=== PATIENT | male | born 1975 | race Caucasian/White ===

== ENCOUNTER 2022-09-13 12:49 | Inpatient (IN) | payer OTHER ==
--- NOTE | 2022-09-13 13:32 | ED ---
Psych HPI - General Chief Complaint: Psychiatric Symptoms Stated Complaint: mental health Time Seen by Provider: 09/13/22 12:58 Source: patient, RN notes reviewed Mode of arrival: ambulatory Limitations: no limitations - History of Present Illness Initial Comments: 47-year-old male presents emergency department for anxiety, depression, intermittent thoughts of harming himself. Patient states she's been so anxious states is at his breaking point that he is afraid he may harm himself. Patient states they he says some issues but was placed on ADH medication which she still taking. He states that he just feels unsafe he does use marijuana denies any other illicit drug use or alcohol abuse. Patient states he needs further psychiatric help. - Related Data Home Medications Medication Instructions Recorded Confirmed Dextroamphetamine/Amphetamine 30 mg PO TID 09/13/22 09/13/22 [Adderall 30 mg Tablet] Metoprolol Tartrate [Lopressor] 25 mg PO BID 09/13/22 09/13/22 lisinopriL 40 mg PO BID 09/13/22 09/13/22 Allergies Allergy/AdvReac Type Severity Reaction Status Date / Time No Known Allergies Allergy Verified 09/13/22 14:18 Review of Systems ROS Statement: Those systems with pertinent positive or pertinent negative responses have been documented in the HPI. ROS Other: All systems not noted in ROS Statement are negative. Past Medical History Past Medical History: Hypertension History of Any Multi-Drug Resistant Organisms: None Reported Past Surgical History: Appendectomy Past Psychological History: ADD/ADHD, Anxiety, Depression Smoking Status: Current every day smoker Past Alcohol Use History: None Reported Past Drug Use History: None Reported General Exam Limitations: no limitations General appearance: alert, in no apparent distress Head exam: Present: atraumatic, normocephalic, normal inspection Eye exam: Present: normal appearance, PERRL, EOMI. Absent: scleral icterus, conjunctival injection, periorbital swelling ENT exam: Present: normal exam, normal oropharynx, mucous membranes moist Neck exam: Present: normal inspection, full ROM. Absent: tenderness, meningismus, lymphadenopathy Respiratory exam: Present: normal lung sounds bilaterally. Absent: respiratory distress, wheezes, rales, rhonchi, stridor Cardiovascular Exam: Present: regular rate, normal rhythm, normal heart sounds. Absent: systolic murmur, diastolic murmur, rubs, gallop, clicks GI/Abdominal exam: Present: soft, normal bowel sounds. Absent: distended, tenderness, guarding, rebound, rigid Psychiatric exam: Present: anxious Skin exam: Present: warm, dry, intact, normal color. Absent: rash Course Vital Signs 09/13/22 09/13/22 12:51 13:40 Temperature 98.7 F 98.1 F Pulse Rate 99 94 Respiratory 20 19 Rate Blood Pressure 160/116 165/119 O2 Sat by Pulse 99 99 Oximetry Medical Decision Making - Medical Decision Making Was pt. sent in by a medical professional or institution (, NATALIE, PSYCHOLOGIST PERSONNEL, urgent care, hospital, or [facility]...) When possible be specific @ -No Did you speak to anyone other than the patient for history (EMS, parent, family, police, friend...)? What history was obtained from this source @ -No Did you review nursing and triage notes (agree or disagree)? Why? @ -I reviewed and agree with nursing and triage notes Were old charts reviewed (outside hosp., previous admission, EMS record, old EKG, old radiological studies, urgent care reports/EKG's, [facility] records)? Report findings @ -No old charts were reviewed Differential Diagnosis (chest pain, altered mental status, abdominal pain women, abdominal pain men, vaginal bleeding, weakness, fever, dyspnea, syncope, headache, dizziness, GI bleed, back pain, seizure, CVA, palpatations, mental health, musculoskeletal)? @ -Anxiety, depression, bipolar disorder, schizophrenia, this list is not all- inclusive EKG interpreted by me (3pts min.). @ -None X-rays interpreted by me (1pt min.). @ -None done CT interpreted by me (1pt min.). @ -None done U/S interpreted by me (1pt. min.). @ -None done What testing was considered but not performed or refused? (CT, X-rays, U/S, labs)? Why? @ -None What meds were considered but not given or refused? Why? @ -None Did you discuss the management of the patient with other professionals (professionals i.e. NATALIE Steve, PSYCHOLOGIST PERSONNEL, lab, RT, psych nurse, criminal justice social worker, machine fastener, teacher, hospital chief financial officer, director case management)? Give summary @ -EPS psychiatry who evaluated the patient and recommend patient be admitted for further treatment and management. Was smoking cessation discussed for >3mins.? @ -No Was critical care preformed (if so, how long)? @ -No Were there social determinants of health that impacted care today? How? (Homelessness, low income, unemployed, alcoholism, drug addiction, transportation, low edu. Level, literacy, decrease access to med. care, nursing home, rehab)? @ -No Was there de-escalation of care discussed even if they declined (Discuss DNR or withdrawal of care, Hospice)? DNR status @ -No What co-morbidities impacted this encounter? (DM, HTN, Smoking, COPD, CAD, Cancer, CVA, ARF, Chemo, Hep., AIDS, mental health diagnosis, sleep apnea, morbid obesity)? @ -None Was patient admitted / discharged? Hospital course, mention meds given and route, prescriptions, significant lab abnormalities, going to OR and other pertinent info. @ -Admitted to [facility]. after psychiatric evaluation by EPS for psychiatric treatment Undiagnosed new problem with uncertain prognosis? @ -No Drug Therapy requiring intensive monitoring for toxicity (Heparin, Nitro, Insulin, Cardizem)? @ -No Were any procedures done? @ -No Diagnosis/symptom? @ -Anxiety, suicidal ideation Acute, or Chronic, or Acute on Chronic? @ -Acute Uncomplicated (without systemic symptoms) or Complicated (systemic symptoms)? @ -Complicated Side effects of treatment? @ -No Exacerbation, Progression, or Severe Exacerbation? @ -No Poses a threat to life or bodily function? How? (Chest pain, USA, MS, pneumonia, PE, COPD, DKA, ARF, appy, cholecystitis, CVA, Diverticulitis, Homicidal, Suicidal, threat to staff... and all critical care pts) @ -[Yes patient is suicidal Disposition Clinical Impression: Acute anxiety, Suicidal ideation Disposition: TRANSFER TO PSYCH HOSP/UNIT Referrals: Nonstaff,Physician [Primary Care Provider] - 1-2 days Time of Disposition: 15:03
[2022-09-13] MEDS ORDERED: cloNIDine HCL 0.2 MG TAB PO STA (13:41)
[2022-09-13 15:15] LABS: Amphetamine Screen,Urine Detected (NotDetected); Barbiturate Screen,Urine Not Detected (NotDetected); Benzodiazepines Screen,Urine Not Detected (NotDetected); Cocaine Screen,Urine Not Detected (NotDetected); Methadone Screen, Urine Not Detected (NotDetected); Opiate Screen,Urine Not Detected (NotDetected); Oxycodone Screen, Urine Not Detected (NotDetected); Phencyclidine Screen,Urine Not Detected (NotDetected); Tricyclic Antidepressant,Urine Not Detected (NotDetected); Urn Cannabinoid Scrn Not Detected (NotDetected)
[2022-09-13] MEDS ORDERED: ACETAMINOPHEN TAB 325 MG TAB PO PRN (17:12)
[2022-09-13] MEDS ORDERED: MAG HYDROX/AL HYDROX/SIMETH 30 ML CUP PO PRN (17:12)
[2022-09-13] MEDS ORDERED: MAGNESIUM HYDROXIDE 2,400 MG/10 ML CUP PO PRN (17:12)
[2022-09-13] MEDS ORDERED: LORazepam 1 MG TAB PO PRN (17:16)
[2022-09-13] MEDS ORDERED: HALOPERIDOL LACTATE 5 MG/ML 1 ML VIAL IM PRN (17:16)
[2022-09-13] MEDS ORDERED: LORazepam 2 MG/ML INJ IM PRN (17:16)
[2022-09-13] MEDS ORDERED: traZODone HCL 50 MG TAB PO PRN (17:16)
[2022-09-13] MEDS ORDERED: haloperidoL 5 MG TAB PO PRN (17:16)
[2022-09-13 21:11] LABS: Appearance,Urine Clear (Clear); Bilirubin,Urine Negative (Negative); Blood,Urine Negative (Negative); Color,Urine Light Yellow; Glucose,Urine (UA) Negative (Negative); Ketones,Urine Negative (Negative); Leukocyte Esterase,Urine Negative (Negative); Nitrite,Urine Negative (Negative); PH, Urine 6.5 (5.0-8.0); Protein,Urine Negative (Negative); Specific Gravity,Urine 1.005 (1.001-1.035); Urobilinogen,Urine <2.0 mg/dL (<2.0)
[2022-09-13] MEDS: METOPROLOL TARTRATE 25 MG TAB PO SCH (23:23)
[2022-09-13] MEDS: lisinopriL 20 MG TAB PO SCH (23:23)
--- NOTE | 2022-09-14 00:09 | P.CONS ---
History of Present Illness - Reason for Consult Consult date: 09/14/22 - History of Present Illness The patient is a 47-year-old male with a PMH of hypertension, anxiety, depression and tobacco abuse who presents to the emergency room with complaints of worsening anxiety. The patient was admitted to the [facility] where he was seen and evaluated. The patient reports that he has been dealing with a lot recently and that it is becoming overwhelming. He reports occasional marijuana use as well as smoking one pack of cigarettes daily. He denied alcohol use. Suggestions discomfort, shortness of breath, fever, chills, cough, nausea, vomiting, abdominal pain, diarrhea. Review of systems: Pertinent positives and negatives as discussed in HPI, a complete review of systems was performed and all other systems are negative. Physical examination: General: non toxic, no distress, appears at stated age, normal weight Derm: no unusual rashes/lesions, no unusual ecchymoses, warm, dry Head: atraumatic, normocephalic, symmetric Eyes: EOMI, no lid lag, anicteric sclera ENT: Nose and ears atraumatic, no thrush, no pharyngeal erythema Neck: trachea midline, supple Mouth: no lip lesion, mucus membranes moist Cardiovascular: S1S2 reg, no murmur, no edema Lungs: CTA bilateral, no rhonchi, no rales , no accessory muscle use Abdominal: soft, nontender to palpation, no guarding Ext: no gross muscle atrophy, no contractures, Neuro: No gross focal neuro deficits noted Psych: Alert, oriented, appropriate affect Assessment: Chronic conditions: Hypertension Marijuana abuse, tobacco abuse Depression and anxiety Imaging: [] Data Review: Laboratory evaluation was reviewed and urine toxicology was positive for amphetamines. Plan: Resume patient's home medications of Lopressor 25 mg by mouth twice a day and lisinopril 40 mg by mouth twice a day Strongly advised patient on importance of cessation of marijuana and tobacco use Defer management of depression and anxiety to primary psychiatry service Thank you for allowing us to participate in the care of this patient. We will follow peripherally. Do not hesitate to contact us with questions. Someone can be reached from the [facility] hospitalist group at all hours of the day at [phone]. Past Medical History Past Medical History: Hypertension History of Any Multi-Drug Resistant Organisms: None Reported Past Surgical History: Appendectomy Past Anesthesia/Blood Transfusion Reactions: No Reported Reaction Past Psychological History: ADD/ADHD, Anxiety, Depression Smoking Status: Current every day smoker Past Alcohol Use History: None Reported Past Drug Use History: Marijuana - Past Family History Mother Family Medical History: Hypertension Medications and Allergies Home Medications Medication Instructions Recorded Confirmed Type Dextroamphetamine/Amphetamine 30 mg PO TID 09/13/22 09/13/22 History [Adderall 30 mg Tablet] Metoprolol Tartrate [Lopressor] 25 mg PO BID 09/13/22 09/13/22 History lisinopriL 40 mg PO BID 09/13/22 09/13/22 History Allergies Allergy/AdvReac Type Severity Reaction Status Date / Time No Known Allergies Allergy Verified 09/13/22 18:15 Physical Exam Vitals: Vital Signs Temp Pulse Pulse Resp BP BP Pulse Ox 09/13/22 18:00 97.9 F 86 18 132/95 96 09/13/22 15:11 87 18 155/97 96 09/13/22 13:40 98.1 F 94 19 165/119 99 09/13/22 12:51 98.7 F 99 20 160/116 99 Intake and Output 09/13/22 09/13/22 09/14/22 14:59 22:59 06:59 Other: Weight 99.79 kg 97.976 kg Results Labs: Abnormal Lab Results - Last 24 Hours (Table) 09/13/22 Range/Units 14:43 Ur Amphetamines Screen Detected H (NotDetected)
[2022-09-14 06:52] VITALS: RESP 16; TEMP 98.6
[2022-09-14] MEDS: METOPROLOL TARTRATE 25 MG TAB PO SCH ×2 (09:18→21:41)
[2022-09-14] MEDS: lisinopriL 20 MG TAB PO SCH ×2 (09:18→21:41)
[2022-09-14] MEDS: NICOTINE 14MG/24HR PATCH TRANSDERM SCH (09:19)
[2022-09-14 09:20] VITALS: BP 119/88; PULSE 113
[2022-09-14] MEDS: Dextroamphetamine/Amphetamine [Adderall] 30 MG Tablet PO SCH ×2 (09:20→12:57)
[2022-09-14] MEDS ORDERED: traZODone HCL 100 MG TAB PO PRN (14:16)
[2022-09-14] MEDS ORDERED: LORazepam 2 MG/ML INJ IM PRN (14:34)
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
[2022-09-14] MEDS ORDERED: diphenhydrAMINE 50 MG/ML 1 ML VIAL IM PRN (14:46)
[2022-09-14] MEDS ORDERED: diphenhydrAMINE 25 MG CAP PO PRN (14:47)
[2022-09-14] MEDS: METHYLPHENIDATE HCL 10 MG TAB PO SCH (16:29)
[2022-09-14] MEDS: LITHIUM CARBONATE 300 MG CAP PO SCH (21:40)
[2022-09-15] MEDS: lisinopriL 20 MG TAB PO SCH ×2 (15:25→21:28)
[2022-09-15] MEDS: LITHIUM CARBONATE 300 MG CAP PO SCH ×2 (15:25→21:29)
[2022-09-15] MEDS: METOPROLOL TARTRATE 25 MG TAB PO SCH ×2 (15:26→21:29)
[2022-09-15] MEDS: METHYLPHENIDATE HCL 10 MG TAB PO SCH (15:26)
[2022-09-15] MEDS: NICOTINE 14MG/24HR PATCH TRANSDERM SCH (15:26)
[2022-09-16] MEDS: lisinopriL 20 MG TAB PO SCH ×2 (08:19→20:49)
[2022-09-16] MEDS: METHYLPHENIDATE HCL 10 MG TAB PO SCH ×2 (08:20→15:38)
[2022-09-16] MEDS: NICOTINE 14MG/24HR PATCH TRANSDERM SCH (08:20)
[2022-09-16] MEDS: LITHIUM CARBONATE 300 MG CAP PO SCH ×2 (08:20→20:49)
[2022-09-16] MEDS: METOPROLOL TARTRATE 25 MG TAB PO SCH ×2 (08:20→20:50)
--- NOTE | 2022-09-16 19:28 | P.PN ---
Progress Note - Text Progress Note Date: 09/15/22 Interval history: Patient was seen isolating to his room, is awake laying in bed in the dark. He is irritable, confrontational and uncooperative with assessment. He yells at this provider over not having his Adderall, which he has been told multiple times by staff this was replaced with Ritalin on admission per doctor's orders to taper him down since Adderall is not on formulary. He continues to yell, and claims it is doing him "more harm than good" being here, however he appeared to be relaxing and comfortable when I first entered the room. He continues to yell, demands to be discharged, and makes a statement regarding Dr. Gutierrez that can be considered a threat "If he was here I'd break off the frame of my glasses and shove them in his throat!" He abruptly ends the assessment and states he doesn't want to talk to me. He is noncompliant with all of this medications, is not taking the Ritalin, [place], or blood pressure meds. Mental status exam: General Appearance: Patient appears to be stated age, tall well-nourished male, fair hygiene/grooming Behavior: Confrontational, yelling, demanding Speech: Patient's speech is fluent. loud, and non-pressured. Mood/Affect: Mood is irritable, affect is labile. Suicidality/Homicidality: Unable to assess due to lack of cooperation with assessment. Perceptions: Unable to assess due to lack of cooperation with assessment. Though content/process: Appears paranoid, Derails, make threatening statements, accusatory. Memory and concentration: AOX3, grossly intact for the purposes of this session Judgment and insight: Poor Assessment/Plan: Continue with current diagnosis. Patient continues to meet criteria for inpatient psychiatric admission for symptom stabilization and safety. Patient will be maintained on current psychotropic medication regimen, however if refusing his medications. Monitor for medication compliance and for any psychotropic medication side effects. Will continue to monitor ongoing response to treatment. Encouraged participation in milieu.
--- NOTE | 2022-09-16 19:42 | P.PN ---
Progress Note - Text Progress Note Date: 09/16/22 Interval history: Patient was seen relaxing in the lounge with peers. He agrees to talk to me initially, but comes into the hallway and continues to be irritable, confrontational and uncooperative with assessment as he was yesterday. He abruptly ends assessment and states "I don't trust you now either", due to not getting his Adderall. He is noncompliant with all of this medications, is not taking the Ritalin, [place], or blood pressure meds. Mental status exam: General Appearance: Patient appears to be stated age, tall well-nourished male, fair hygiene/grooming Behavior: Confrontational, demanding, dismissive Speech: Patient's speech is fluent, loud, and non-pressured. Mood/Affect: Mood is irritable, affect is labile. Suicidality/Homicidality: Unable to assess due to lack of cooperation with assessment. Perceptions: Unable to assess due to lack of cooperation with assessment. Though content/process: Confrontational, ruminative Memory and concentration: AOX3, grossly intact for the purposes of this session Judgment and insight: Poor Assessment/Plan: Continue with current diagnosis. Patient continues to meet criteria for inpatient psychiatric admission for symptom stabilization and safety. Patient will be maintained on current psychotropic medication regimen, however is refusing his medications. Monitor for medication compliance and for any psychotropic medication side effects. Will continue to monitor ongoing response to treatment. Encouraged participation in milieu.
[2022-09-17] MEDS: METHYLPHENIDATE HCL 10 MG TAB PO SCH (10:45)
[2022-09-17] MEDS: LITHIUM CARBONATE 300 MG CAP PO SCH (10:45)
[2022-09-17] MEDS: NICOTINE 14MG/24HR PATCH TRANSDERM SCH (10:45)
[2022-09-17] MEDS: lisinopriL 20 MG TAB PO SCH (10:45)
[2022-09-17] MEDS: METOPROLOL TARTRATE 25 MG TAB PO SCH (10:45)
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
== END 2022-09-17 12:34 | disposition home or self-care (01) | DRG 885 ==
LOC: SUPCPDRO 12:49 → EC 12:49 → 3MHU 17:09
PROVIDERS: ADMIT Psychiatry & Neurology Psychiatry; ATTEND Psychiatry & Neurology Psychiatry
DX: F39 Unspecified mood [affective] disorder (principal); R45.851 Suicidal ideations; Z20.822 Contact with and (suspected) exposure to COVID-19; F15.10 Other stimulant abuse, uncomplicated; F90.9 Attention-deficit hyperactivity disorder, unspecified type; F12.10 Cannabis abuse, uncomplicated; F41.9 Anxiety disorder, unspecified; F17.210 Nicotine dependence, cigarettes, uncomplicated; F32.A Depression, unspecified; Y35.819A Legal intervention involving manhandling, unspecified person injured, initial encounter; Z87.19 Personal history of other diseases of the digestive system
CPT/HCPCS: 80306; 81003; 82075; 87635; 99285